=== PATIENT | male | born 2000 | race Caucasian/White ===

== ENCOUNTER 2021-02-06 21:56 | Inpatient (IN) | payer OTHER, SELFPAY ==
[2021-02-06] MEDS: haloperidol inj 5 mg/mL INJ 1 mL IM (21:57)
[2021-02-06 21:59] VITALS: BP 149/99; PULSE 82; RESP 18; TEMP 36.7; O2SAT 97; BMI 25.8
--- NOTE | 2021-02-06 22:04 | W.ED.PSYCH ---
HPI - Psych General: Chief Complaint: Psychiatric Symptoms Stated Complaint: si/96hr Time Seen by Provider: 02/06/21 21:57 Source: patient and police Mode of arrival: other (police) Limitations: no limitations History of Present Illness: HPI Narrative: As he was pulled over after doing burn outs.20-year-old male who is brought here by police on talk to please he states that he just wanted to kill himself. He states that they did not take him into retirement or custody he was going to go home and kill himself. [place] please place patient under a 96-hour hold. Patient here not give full history and is being evasive and is quite agitated. Associated symptoms: Reports depression and suicidal ideation Review of Systems Const: Denies: fever(s), chills, body aches or change in appetite Eyes: Denies: blurry vision or eye discomfort ENMT: Denies: throat pain or dental pain Card: Denies: chest pain Resp: Denies: dyspnea GI: Denies: abdominal pain, nausea, vomiting or diarrhea : Denies: dysuria Musc: Denies: neck pain or back pain Skin/Breast: Denies: rash Neuro: Denies: headache(s) Psych: Reports: depression and suicidal ideation [place]/Lymph: Denies: easy bruising All/Imm: Denies: urticaria Physical Exam Const: COMMON NORMALS: no acute distress, patient oriented x3 and healthy appearing HENMT: COMMON NORMALS: normocephalic and atraumatic HEAD & SCALP: normocephalic and atraumatic Eye: COMMON NORMALS: Equal, round and reactive pupils present and EOMs intact bilaterally PUPIL: Yes Equal, round and reactive pupils present Neck/C-Spine: COMMON NORMALS: full ROM and supple Chest: COMMONS NORMALS: normal inspection of the chest and normal palpation of entire chest wall Resp: COMMON NORMALS: normal respiratory effort, No retractions, No use of accessory muscles and clear to auscultation bilaterally AUSCULTATION: clear to auscultation bilaterally Cardio: COMMON NORMALS: regular rate, regular rhythm and No murmurs present (Cardio) RATE: regular rate RHYTHM: regular rhythm GI: COMMON NORMALS: Normal to inspection, nondistended, normoactive bowel sounds present, Soft to palpation, non-tender and no masses PALPATION: Yes Soft to palpation Extremity: COMMON NORMALS: normal to inspection and full ROM Neuro: COMMON NORMALS: patient oriented x3, moves all extremities and no focal motor deficits Psych: COMMON NORMALS: mental status grossly normal, Normal thought process present and cooperative THOUGHT PROCESS: Normal thought process present THOUGHT CONTENT: Yes Suicidality present Skin: COMMON NORMALS: no rashes or lesions noted and no wounds GENERAL SKIN EXAM: no rashes or lesions noted MDM - Psych MDM Narrative: Medical decision making narrative: Patient presents here with suicidal ideation was placed under 96-hour hold by [place]. He was originally combative here but is now calm and stable. Patient's blood work is all normal. I spoke to psychiatrist Dr. York and will admit to the psychiatric unit. Lab Data: Labs: Lab Results 02/06/21 02/06/21 Range/Units 22:40 22:40 WBC 8.0 (4.5-13.0) 10^3/ uL RBC 4.91 (4.1-5.3) 10^6/u L Hgb 15.0 (11.7-16.6) g/dL Hct 43.0 (42.0-52.0) % MCV 87.6 (80-94) fL MCH 30.5 (28.0-34.0) pg MCHC 34.9 (30.0-36.0) g/dL RDW 13.9 (12.1-15.1) % Plt Count 232 (130-400) 10^3/c mm MPV 10.2 (7.4-10.4) fL Neut % (Auto) 48.5 % Lymph % (Auto) 40.6 % [place] % (Auto) 8.8 % Eos % (Auto) 1.4 % Baso % (Auto) 0.5 % Neut # (Auto) 3.89 (1.8-8.0) 10^3/u L Lymph # (Auto) 3.3 (1.5-6.5) 10^3/u L [place] # (Auto) 0.7 (0.2-0.9) 10^3/u L Eos # (Auto) 0.1 (0.0-0.8) 10^3/u L Baso # (Auto) 0.0 (0.0-0.1) 10^3/u L Nucleated RBC % (a uto) 0 % Nucleated RBCs # 0.0 /100WBC Sodium 140 (136-145) mmol/L Potassium 3.1 L (3.5-5.1) mmol/L Chloride 103 (98-107) mmol/L Carbon Dioxide 26 (22-29) mmol/L Anion Gap 14.1 (5-19) BUN 20 (6-20) mg/dL Creatinine 0.8 (0.7-1.2) mg/dL GFR Calculation 123.2 (90-130) mL/min Glucose 125 H (65-115) mg/dL Calculated Osmolal ity 294 (285-295) mOsm/k g Calcium 9.0 (8.5-10.5) mg/dL Total Bilirubin 0.3 (0.15-1.2) mg/dL AST 14 (0-40) U/L ALT 10 (0-41) U/L Alkaline Phosphata se 63 (40-130) IU/L Total Protein 7.2 (6.6-8.7) g/dL Albumin 4.6 (3.5-5.2) g/dL Globulin 2.6 (1.3-4.6) g/dL Salicylates < 0.3 L (3-10) mg/dL Acetaminophen < 5.0 L (10-30) ug/mL Ethyl Alcohol < 10 (0-10) mg/dL Discharge Plan Discharge Patient Disposition: Admitted As Inpatient Clinical Impression: Suicidal ideation Condition: Stable Coding Level of Care Code ED Inspector Watch Train for [facility] Fwd Exam Comprehensive Face to Face: Restrn/Seclusion Events leading up to initiation: Verbalizing threat to self or others Evaluation of patient's immediate situation: Alert and oriented and No signs of physical distress Patient reaction since intervention applied: Continued attempts/displays harmful behavior Review of medications: Yes Patient's current medical/behavioral condition: No new concerns since last ROS Need for restraint or seclusion is: Continued Attending notified: Yes
[2021-02-06] MEDS: LORazepam 2 mg/mL INJ 1 mL IM (22:16)
[2021-02-06 22:54] LABS: Basophils % 0.5 %; Eosinophils # 0.1 10^3/uL (0.0-0.8); Eosinophils % 1.4 %; Lymphocytes # 3.3 10^3/uL (1.5-6.5); Lymphocytes % 40.6 %; Mean Corpuscular HGB Conc 34.9 g/dL (30.0-36.0); Mean Corpuscular Hemoglobin 30.5 pg (28.0-34.0); Mean Corpuscular Volume 87.6 fL (80-94); Mean Platelet Volume 10.2 fL (7.4-10.4); Monocytes # 0.7 10^3/uL (0.2-0.9); Monocytes % 8.8 %; Neutrophils # 3.89 10^3/uL (1.8-8.0); Neutrophils % 48.5 %; Nucleated Red Blood Cells % 0 %; Platelet Count 232 10^3/cmm (130-400); Red Blood Count 4.91 10^6/uL (4.1-5.3); Red Cell Distribution Width 13.9 % (12.1-15.1)
[2021-02-06 23:12] LABS: Alanine Aminotransferase 10 U/L (0-41); Albumin Level 4.6 g/dL (3.5-5.2); Alkaline Phosphatase 63 IU/L (40-130); Anion Gap 14.1 (5-19); Aspartate Amino Transferase 14 U/L (0-40); Blood Urea Nitrogen 20 mg/dL (6-20); Carbon Dioxide 26 mmol/L (22-29); Chloride 103 mmol/L (98-107); Globulin 2.6 g/dL (1.3-4.6); Glomerular Filtration Rate 123.2 mL/min (90-130); Glucose 125 mg/dL (65-115); Osmolality Calculated 294 mOsm/kg (285-295); Potassium 3.1 mmol/L (3.5-5.1); Sodium 140 mmol/L (136-145); Total Bilirubin 0.3 mg/dL (0.15-1.2); Total Protein 7.2 g/dL (6.6-8.7)
[2021-02-06 23:21] LABS: Acetaminophen < 5.0 ug/mL (10-30); Alcohol Level < 10 mg/dL (0-10); Salicylate < 0.3 mg/dL (3-10)
--- NOTE | 2021-02-06 23:43 | PC.NURSE ---
pt report called to Liat RN in SBAR format.
[2021-02-06 23:59] VITALS: BP 138/86; PULSE 88; RESP 18; O2SAT 98
[2021-02-07] VITALS: BP 135/87; PULSE 81; RESP 17; TEMP 36.8; O2SAT 95
[2021-02-07 00:08] LABS: Amphetamines Screen Urine Negative (Negative); Barbiturates Screen Urine Negative (Negative); Benzodiazepines Screen Urine Negative (Negative); Cocaine Screen Urine Negative (Negative); Opiate Screen Urine Negative (Negative); PCP Screen Urine Negative (Negative); THC Screen Urine Negative (Negative)
--- NOTE | 2021-02-07 05:48 | PC.NURSE ---
20/M BROUGHT TO ED VIA POLICE AFTER MAKING SUICIDAL STATEMENTS TO THE OFFICER CALLED TO THE SCENE, PT WAS DRIVING ERRATICALLY, DOING DOUGHNUTS AND BURNING OUT OF PARKING LOTS. PT STATED THAT HE JUST WANTED TO KILL HIMSELF, AND IF THE POLICE DID NOT ARRWEST HIM THEN HE WOULD GO HOME AND DO IT. [place] [employer] PETITIONED FOR A 96 HOUR HOLD, PT IS EVASIVE AND AGITATED ON ARRIVAL, HIS BEHAVIOR ESCALATED TO VERBAL/PHYSICAL VIOLENCE IN THE ED WHEN STAFF REQUESTED URINE/BLOOD SAMPLES, PT STATED, IM OUT OF HERE, I GET A CHANCE, IM GONE. PT CONTINUED TO YELL, SHOVE PAST STAFF, HE WAS PLACED IN RESTRAINTS, GIVEN HALDOL 5MG IM AND ATIVAN 2MG IM PRIOR TO ARRIVAL ON NPU UNIT, PT WAS COOPERATIVE ON ARRIVAL HERE. BAL AND DOA ARE NEGATIVE.
[2021-02-07 05:52] VITALS: BP 119/62; PULSE 80; RESP 16; TEMP 36.2; O2SAT 98
--- NOTE | 2021-02-07 05:53 | PC.NURSE ---
BEHAVIOR PT IS CALM/COOPERATIVE ON ARRIVAL, V/S ARE WNL., HEART/LUNG SOUNDS ARE NORMAL, DENIED AH/VH. DENIES PAIN, DENIES SI/HI, AND STATED THAT HE WAS NEVER SUICIDAL BUT HE DID NOT WANT TO GO TO [facility]. PATIENT IS MANIPULATIVE, PER ED REPORT, THE PATIENT SEEMS TO REACT BETTER WITH FEMALES, HE DOES NOT LIKE MALE AUTHORITY FIGURES.
--- NOTE | 2021-02-07 12:15 | PM.NHP ---
Providers/Chief Complaint Admitting Physician: Lonnie York DO Chief Complaint: si/96hr HPI NPU History of Present Illness Jeison Rendon is a 20 year old male with no known past psychiatric history presented by police on 96-hour hold after being seen doing burnouts spinning his wheels of his vehicle. When patient was stopped he said that he was wanting to leave this earth and not want to be here anymore. Patient was interpreted as saying that he was going to kill himself. Patient is somewhat difficult historian and continues to be grandiose with sikhism themed delusions stating that he is trapped in his earth-bound body and is thankful each day that he knows Adin and that he is wondering closer to either dying with a return of his savior. 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 Patient continues to go through his Bible citing various versus in response to questions about his mental health history and about events leading to his hospitalization. Patient also intermittently laughs inappropriately and does not provide any direct responses. He denies any auditory or visual hallucinations. He reports feeling a lot of david and feeling very happy and denies any depressive symptoms. He provides a vague response with regards to whether or not he wants to end his life stating that he looks forward to dying. He states that he will not take any medication if it is prescribed. Review of Systems General: Reports: Other (Refuses to participate in review of systems) Meds NPU Home Medications Medication Instructions Recorded Confirmed Last Taken Type No Known Home Medications 02/07/21 02/07/21 Unknown History Allergies Allergy/AdvReac Type Severity Reaction Status Date / Time No Known Allergies Allergy Verified 02/06/21 21:58 [facility] NPU Other Psychiatric History: Other Psychiatric History: Denies any past psychiatric treatment Denies any history of psychiatric hospitalizations Denies any history of suicide attempt or self-harm behavior Mental Status Exam MSE Comments: Appropriately groomed and dressed, wearing hospital scrubs, somewhat elated and expansive, good eye contact Psychomotor activity is neither increased nor decreased, no agitation Speech is normal rate, normal volume, clear articulation, not pressured I feel great, somewhat expansive, not labile Alert and oriented to person, place, time, situation Memory and concentration appear to be fair per interview Intellectual functioning appears to be average based on vocabulary, interview Thought process, circumstantial, requires redirection, no flight of ideas but some looseness of association Thought content, sikhism theme delusions, does not appear to be attending to any internal stimuli, no suicidal ideation although continued vague references of wanting to leave earth , no homicidal ideation Insight and judgment are limited Vitals/I&O/Wt Last Vital Signs Temp 97.2 F L 02/07/21 05:52 Pulse 80 02/07/21 05:52 Resp 16 02/07/21 05:52 BP 119/62 02/07/21 05:52 Pulse Ox 98 02/07/21 05:52 Weight last 48 hrs Weight 79.379 kg Data NPU : 02/06/21 22:40 02/06/21 22:40 A&P Assessment and plan (1) Suicidal ideation: Status: Acute (2) Unspecified mood [affective] disorder: Status: Acute Additional A&P Information Patient with no psychiatric history presenting by police on 96-hour hold with odd behavior, spitting out the wheels of his vehicle, stating that he wanted to kill himself or leave earth in order to leave his earth-bound body to be with Kvng and go to heaven, continues to have sikhism-themed delusions and is circumstantial with loose associations, denies any depressive symptoms. INVOLUNTARY ADMIT to inpatient psychiatry START olanzapine 5 mg by mouth twice daily targeting psychotic symptoms Encouraged patient to participate in unit activities to include group sessions, unit milieu Coordinate with geriatric social work professor for post discharge care Involuntary Hold Information 96 Hour Hold: 96 Hour Involuntary Admission: Yes 96 Hour Hold Ending Date: 02/12/21 Attestations NPU Medical Necessity Statement*: Requires psychiatric hospitalization for medication stabilization, coordination for safe discharge Anticipate hospital stay to exceed 2 midnights Time Spent in Patient Care: Greater than 35 minutes (>than 50% of time spent in counselling and/or direct pt care on unit). Coding Level of Care Code Acute Insert Molding Operator for Karen Weston Diagnoses Suicidal ideation R45.851 Unspecified mood [affective] disorder F39
--- NOTE | 2021-02-07 13:06 | PC.NURSE ---
pt refused medication zyprexa 5mg, pt stated that he doesn't take medications. Staff encouraged pt to take meds. pt rolled over and took a nap.
[2021-02-07 13:26] VITALS: BP 114/65; PULSE 99; RESP 16; TEMP 36.9; O2SAT 98
[2021-02-07] MEDS: OLANZapine 5 mg TABLET PO ×2 (15:26→21:46)
[2021-02-07] MEDS: cetylpyridinium Lozenge 1 EACH MUCOUS MEM (15:54)
[2021-02-07 22:00] VITALS: BP 114/65; PULSE 78; RESP 17; TEMP 36.9; O2SAT 98
[2021-02-08 06:00] VITALS: BP 114/65; PULSE 78; RESP 17; TEMP 36.9; O2SAT 98
[2021-02-08] MEDS: OLANZapine 5 mg TABLET PO ×2 (08:54→20:16)
[2021-02-08 13:11] VITALS: BP 116/75; PULSE 87; RESP 16; TEMP 36.1; O2SAT 98
--- NOTE | 2021-02-08 13:26 | P.PN_ITS ---
Subjective NPU Subjective: Interval history: Patient is a little bit easier to interview today, more organized, states that he acknowledges that he has a mother and verbally provides consent to speak to his mother as needed Denies any current mood symptoms, denies any depressed symptoms, denies any suicidal ideation Patient continues to communicate odd statements with samaritan themed delusions States that he is compliant with his medication and denies any medication side effects Reports that he slept well and that his appetite is been good Mental Status Exam MSE Comments: Initially standing in the hallway but sitting on his bed for interview, calm, cooperative, interactive, appropriately groomed and dressed, good eye contact Psychomotor activity is neither increased nor decreased, no agitation Speech is normal rate, normal volume, clear articulation, not pressured I feel okay, full range, not labile Alert and oriented to person, place, time, situation Memory and concentration appear to be fair per interview Thought process, more linear, requires less redirection, no flight of ideas but some looseness of association Thought content, samaritan theme delusions, no hallucinations, no suicidal ideation, no homicidal ideation Insight and judgment are fair Vitals/I&O/Wt Last Vital Signs Temp 97.0 F L 02/08/21 13:11 Pulse 87 02/08/21 13:11 Resp 16 02/08/21 13:11 BP 116/75 02/08/21 13:11 Pulse Ox 98 02/08/21 13:11 Weight last 48 hrs Weight 79.379 kg Data NPU : 02/06/21 22:40 02/06/21 22:40 A&P Assessment and plan (1) Suicidal ideation: Status: Acute (2) Unspecified mood [affective] disorder: Status: Acute Additional A&P Information Appears to be improving, more organized, continues to have samaritan themed delusions CONTINUE current medication, continue to monitor Involuntary Hold Information 96 Hour Hold: 96 Hour Involuntary Admission: Yes 96 Hour Hold Ending Date: 02/12/21 Attestations NPU Medical Necessity Statement*: Psychiatric hospitalization continues to be required for medication stabilization, coordination for safe discharge Coding Level of Care Code Acute Bat Lathe Operator for Karen Fwd Diagnoses Suicidal ideation R45.851 Unspecified mood [affective] disorder F39
[2021-02-08] MEDS: cetylpyridinium Lozenge 1 EACH MUCOUS MEM ×2 (15:10→17:03)
[2021-02-08 22:00] VITALS: BP 132/78; PULSE 67; RESP 18; TEMP 36.7; O2SAT 98
[2021-02-09 06:00] VITALS: BP 106/58; PULSE 78; RESP 17; TEMP 36.6; O2SAT 97
[2021-02-09] MEDS: OLANZapine 5 mg TABLET PO ×2 (08:56→20:32)
--- NOTE | 2021-02-09 12:53 | PM.NPN ---
Subjective NPU Subjective: Interval history: Reports improving mood, denies any interval suicidal ideation Denies any auditory or visual hallucinations Continues to have synagogue themed overvalued ideas, ideation Appears to be more organized and states that he does live with his mom but continues to have a place through April in [place] Denies any interval depressive symptoms Reports being compliant with medication, denies any medication side effects Mental Status Exam MSE Comments: Appropriately groomed and dressed, calm, cooperative, good eye contact Psychomotor activity is neither increased nor decreased, no agitation Speech is normal rate, normal volume, clear articulation, not pressured Good, full range, not labile Alert and oriented to person, place, time, situation Memory and concentration appear to be fair per interview Thought process, linear, no flight of ideas but some looseness of association Thought content, synagogue theme overvalued ideas/ideation, no hallucinations, no suicidal ideation, no homicidal ideation Insight and judgment are fair Vitals/I&O/Wt Last Vital Signs Temp 97.8 F 02/09/21 06:00 Pulse 78 02/09/21 06:00 Resp 17 02/09/21 06:00 BP 106/58 02/09/21 06:00 Pulse Ox 97 02/09/21 06:00 Data NPU : 02/06/21 22:40 02/06/21 22:40 A&P Assessment and plan (1) Suicidal ideation: Status: Acute (2) Unspecified mood [affective] disorder: Status: Acute Additional A&P Information Improving mood, appears to be less delusional but continues to have overvalued ideas, ideation that are religiously themed, denies any interval depressive symptoms, denies any suicidal ideation CONTINUE current medication, continue to monitor Involuntary Hold Information 96 Hour Hold: 96 Hour Involuntary Admission: Yes 96 Hour Hold Ending Date: 02/12/21 Attestations NPU Medical Necessity Statement*: Continues to require psychiatric hospitalization for medication stabilization, coordination for safe discharge Coding Level of Care Code Acute Patient Ombudsperson for Karen Weston Diagnoses Suicidal ideation R45.851 Unspecified mood [affective] disorder F39
[2021-02-09 13:33] VITALS: BP 129/62; PULSE 82; RESP 16; TEMP 36.5; O2SAT 98
[2021-02-09 20:53] VITALS: BP 129/88; PULSE 85; RESP 18; TEMP 36.6; O2SAT 96
[2021-02-09] MEDS: trazodone 50 mg Tablet PO (21:26)
[2021-02-10 05:16] VITALS: BMI 25.8
[2021-02-10 06:00] VITALS: BP 135/74; PULSE 68; RESP 17; TEMP 37.4; O2SAT 98
[2021-02-10] MEDS: OLANZapine 5 mg TABLET PO ×2 (08:23→21:13)
[2021-02-10] MEDS: blistex lip oint 7 gm Tube 1 APPLIC TOPICAL (09:36)
--- NOTE | 2021-02-10 12:30 | P.PN_ITS ---
Subjective NPU Subjective: Interval history: Denies any interval suicidal ideation, reports improved mood, no mood or affect lability, does not appear to be pressured in speech or behavior Denies any auditory or visual hallucinations Continues to have episcopalian themed overvalued ideas Continues to be more organized, reality based Denies any interval depressive symptoms Reports being compliant with medication, denies any medication side effects Mental Status Exam MSE Comments: Appears stated age, appropriately groomed and dressed, polite, interactive, good eye contact Psychomotor activity is neither increased nor decreased, no agitation Speech is normal rate, normal volume, clear articulation, not pressured I feel pretty good, full range, not labile Alert and oriented to person, place, time, situation Memory and concentration appear to be fair per interview Thought process, linear, no flight of ideas but some looseness of association Thought content, episcopalian theme overvalued ideas, no hallucinations, no suicidal ideation, no homicidal ideation Insight and judgment are fair Vitals/I&O/Wt Last Vital Signs Temp 99.3 F 02/10/21 06:00 Pulse 68 02/10/21 06:00 Resp 17 02/10/21 06:00 BP 135/74 02/10/21 06:00 Pulse Ox 98 02/10/21 06:00 Weight last 48 hrs Weight 79.379 kg Data NPU : 02/06/21 22:40 02/06/21 22:40 A&P Assessment and plan (1) Suicidal ideation: Status: Acute (2) Unspecified mood [affective] disorder: Status: Acute Additional A&P Information Improving, ongoing episcopalian overvalued ideas but much more organized, no pressured speech or behavior CONTINUE current medication, continue to monitor Involuntary Hold Information 96 Hour Hold: 96 Hour Involuntary Admission: Yes 96 Hour Hold Ending Date: 02/12/21 Attestations NPU Medical Necessity Statement*: Continues to require psychiatric hospita lization, coordination for safe discharge Coding Level of Care Code Acute Unified Communications Engineer for [facility] Fwd Diagnoses Suicidal ideation R45.851 Unspecified mood [affective] disorder F39
[2021-02-10 13:39] VITALS: BP 135/97; PULSE 70; RESP 18; TEMP 36.8
[2021-02-10 21:25] VITALS: BP 107/60; PULSE 72; RESP 18; TEMP 36.4; O2SAT 98
--- NOTE | 2021-02-11 05:47 | PC.NURSE ---
PM ASSESSMENT PT IS JOVIAL, SINGING IN HIS ROOM, READING HIS BIBLE, SHARING WHAT HE HAS READ FROM EPHESIANS, HE IS SHARING THE HOPE HE FOUND IN MUSIC, REPORTS AN INTEREST IN VARIOUS RELIGIONS AND SAYS HE IS DRAWN TO THE ONES THAT ARE OLD SCHOOL, WHERE THE WOMEN HAVE LONG HAIR, AND DO NOT WEAR MAKEUP, OR JEANS . PT DENIES ANY PAIN, DENIES AH/VH, DENIES SI/HI, AND SAYS HE IS SLEEPING BETTER, PT SAYS HE LOOKS FORWARD TO GOING HOME, HE SAYS HE MISSES SEEING HIS FAMILY AND IS UPSET WITH HIMSELF FOR GETTING INTO TROUBLE, PT IS COOPERATIVE WITH STAFF, INTELLIGENT, AND SAYS HE HAS A PLAN TO FOLLOW UP WITH CARE WHEN HE LEAVES THE UNIT. REPORTS MISSING [place], AND HIS FREEDOM THE MOST. OVERALL, PT IS DOING WELL, INTERACTS APPROPRIATELY WITH OTHERS. WILL CONTINUE TO OBSERVE.
[2021-02-11 06:00] VITALS: BP 131/69; PULSE 82; RESP 19; TEMP 36.3; O2SAT 97
[2021-02-11] MEDS: OLANZapine 5 mg TABLET PO (08:13)
[2021-02-11] MEDS: blistex lip oint 7 gm Tube 1 APPLIC TOPICAL (09:16)
--- NOTE | 2021-02-11 09:33 | P.DS_ITS ---
Diagnoses at Discharge Discharge Diagnosis (1) Suicidal ideation: Status: Acute (2) Unspecified mood [affective] disorder: Status: Acute Reason for Visit Reason for Visit: si/96hr Hospital Course Hospital Course 20 year old male with no known past psychiatric history presented by police on 96-hour hold after being seen doing burnouts spinning his wheels of his vehicle. When patient was stopped he said that he was wanting to leave this earth and not want to be here anymore. Patient was interpreted as saying that he was going to kill himself. Patient continued to have baptist theme delusions stating that he wanted to leave this earth to be with [employer]. Patient was started on olanzapine 5 mg twice daily with good effect and continued to have some baptist themed overvalued ideas but denied any auditory or visual hallucinations and was not acting in a bizarre manner with pressured speech or behavior. Patient participated in unit milieu with no reports of any behavioral disturbances. Patient was not suicidal and was not endorsing any psychotic symptoms at the time of discharge. Low to moderate risk of harm to self or others given no current suicidal ideation and no current report of psychotic symptoms although patient's risk may be elevated if he is noncompliant with his medication or medication management follow-up or is using any substances leading to it unexpected, impulsive behavior. Risk mitigation included psychiatric hospitalization, medication stabilization, coordination for safe discharge as well as recommendation to abstain from use of any substances and alcohol and compliance with his medication and medication management follow-up. Patient was able to communicate his understanding of the need to abstain from the use of any substances and alcohol as well as the need for compliance with his medication and medication management follow-up in order to further mitigate his risk of harm to self and others. Involuntary Hold Information 96 Hour Hold: 96 Hour Involuntary Admission: Yes 96 Hour Hold Ending Date: 02/12/21 Mental Status Exam MSE Comments: Appropriately groomed and dressed, calm, cooperative, good eye contact Psychomotor activity is neither increased nor decreased, no agitation Speech is normal rate, normal volume, clear articulation, not pressured Good, full range, not labile Alert and oriented to person, place, time, situation Memory and concentration appear to be fair per interview Thought process, linear, no flight of ideas, no looseness of association Thought content, baptist theme overvalued ideas, no hallucinations, no suicidal ideation, no homicidal ideation Insight and judgment are fair Discharge Data Vitals: Last Vital Signs Temp 97.3 F L 02/11/21 06:00 Pulse 82 02/11/21 06:00 Resp 19 H 02/11/21 06:00 BP 131/69 02/11/21 06:00 Pulse Ox 97 02/11/21 06:00 Discharge Plan Discharge Patient Disposition: Home Condition: Stable Prescriptions: New olanzapine 5 mg Tablet 5 mg PO 0900,2100 Qty: 60 RF: 0 Discharge Orders: Discharge Order (Routine); Ordered 02/11/21 Ordered By: Lonnie York Referrals: [facility] [place] [facility] [Outside] Discharge Diet: Regular Discharge Activity: Resume usual activity Patient Instructions: Olanzapine (By mouth), Opioid Safety Discharge Attestations NPU Time Spent in Discharge Care*: greater than 30 min Status at Discharge: Cognitive status at discharge: cognitively intact , Behavioral status at discharge: cooperative , Functional status at discharge: independent ambulation Overall status at discharge: patient is back to baseline Coding Level of Care Code Acute Chg FW DC note Diagnoses Suicidal ideation R45.851 Unspecified mood [affective] disorder F39
[2021-02-11 09:35] VITALS: BP 131/69; PULSE 82; RESP 19; TEMP 36.3; O2SAT 97
== END 2021-02-11 10:21 | disposition home or self-care (01) | DRG 885 ==
LOC: ER 23:23 → NP 23:33
PROVIDERS: Admitting Provider Psychiatry & Neurology Psychiatry; Emergency Provider Emergency Medicine; Visit Provider Psychiatry & Neurology Psychiatry
DX: F39 Unspecified mood [affective] disorder (principal); R45.851 Suicidal ideations
CPT/HCPCS: 80053; 80306; 80307; 85025; 96372; 99285; J1630; J2060